=== PATIENT | female | born 1960 | race Two or more races ===

== ENCOUNTER 2019-08-19 02:28 | Emergency (ER) | payer OTHER ==
[~2019-08-19] VITALS: Ht 157.5 cm; Wt 56.4 kg
[2019-08-19] MEDS ORDERED: LISI-662 PO (02:45)
[2019-08-19] MEDS ORDERED: METF-960 PO (02:46)
[2019-08-19 02:57] LABS: GLUCOSE,POINT OF CARE 283 MG/DL (70-110)
[2019-08-19 04:25] LABS: ANION GAP 9 mmol/L (8-16); CALCIUM, TOTAL 9.1 mg/dL (8.8-10.5); CARBON DIOXIDE 27 mmol/L (22-29); CHLORIDE 100 mmol/L (98-107); CREATININE 0.59 mg/dL (0.60-1.30); GLOMERULAR FILTR. RATE CALC > 60 mL/min (>60); GLUCOSE,RANDOM 278 mg/dL (70-110); POTASSIUM 4.3 mmol/L (3.5-5.1); SODIUM SERUM 136 mmol/L (136-145); UREA NITROGEN, BLOOD 18 mg/dL (7-18)
[2019-08-19 04:48] LABS: SALICYLATE 2.4 mg/dL (2.8-20.0)
[2019-08-19 05:03] VITALS: BP 140/80
== END 2019-08-19 05:04 | disposition home or self-care (01) ==
LOC: EMS 02:28
DX: H93.13 Tinnitus, bilateral (principal); E11.65 Type 2 diabetes mellitus with hyperglycemia; I10 Essential (primary) hypertension; Z79.84 Long term (current) use of oral hypoglycemic drugs
CPT/HCPCS: 36415; 80048; 82962; 99283; G0480